=== PATIENT | female | born 1985 | race Two or more races ===

== ENCOUNTER 2017-11-19 01:30 | Emergency (ER) | payer MEDICAID ==
[~2017-11-19] VITALS: Ht 170.2 cm; Wt 108.9 kg
[~2017-11-19 01:30] MED LIST: PREN-96 PO
[2017-11-19 02:05] LABS: Urine Bacteria FEW /hpf (None Seen); Urine Blood Negative /uL (Negative); Urine Mucus FEW (None Seen); Urine Specific Gravity 1.016 (1.001-1.035); Urine WBC 3 /hpf (0 - 5)
[2017-11-19 02:09] LABS: Basophils # (auto) 0.1 uL; Basophils % (auto) 1.2 % (0.0-2.0); Eosinophils # (auto) 0.2 uL; Eosinophils % (auto) 3.3 % (0.0-7.0); Hematocrit 41.8 % (36.0-46.0); Hemoglobin 14.2 g/dL (12.2-16.2); Lymphocytes # (auto) 2.9 uL; Lymphocytes % (auto) 40.1 % (10.0-50.0); Mean Corpuscular Hemoglobin 28.4 pg (28.0-32.0); Mean Corpuscular Hgb Conc. 33.9 g/dL (32.0-36.0); Mean Corpuscular Volume 83.8 fL (80.0-100.0); Monocytes # (auto) 0.7 uL; Monocytes % (auto) 9.2 % (0.0-12.0); Neutrophils # (auto) 3.3 uL; Neutrophils % (auto) 46.2 % (37.0-80.0); Nucleated Red Blood Cells % 0.1 %; Platelet Count (auto) 257 10^3/uL (140-450); Red Blood Cells 4.98 10^6/uL (4.0-5.20); Red Cell Distribution Width 12.9 % (11.8-14.3); White Blood Cell 7.2 10^3/uL (4.4-10.8)
[2017-11-19 02:28] LABS: Albumin 3.2 g/dL (3.4-5.0); BUN/Creatinine Ratio 19.7; Calcium 8.5 mg/dL (8.5-10.1); Potassium 4.1 mmol/L (3.5-5.1)
[2017-11-19 02:31] LABS: Bilirubin, Total 0.2 mg/dL (0.2-1.0); Total Protein 7.3 g/dL (6.4-8.2)
[2017-11-19 10:14] VITALS: BP 111/63
== END 2017-11-19 10:29 | disposition home or self-care (01) ==
LOC: ER 01:30
DX: J45.909 Unspecified asthma, uncomplicated (principal); Z90.49 Acquired absence of other specified parts of digestive tract
CPT/HCPCS: 36415; 71046; 80053; 81001; 81025; 85025; 87804

== ENCOUNTER 2019-01-31 21:57 | Emergency (ER) | payer MEDICAID | END 2019-01-31 22:18 | disposition left against medical advice (07) | LOC: ER 21:59 | DX: R10.9 Unspecified abdominal pain (principal); Z53.21 Procedure and treatment not carried out due to patient leaving prior to being seen by health care provider ==

== ENCOUNTER 2019-05-10 11:04 | Emergency (ER) | payer MEDICAID ==
[~2019-05-10] VITALS: Ht 170.2 cm; Wt 128.4 kg
[2019-05-10] MEDS ORDERED: ACETAMINOPHEN/CODEINE#3 (300/30mg) TAB PO ONE (11:30)
[2019-05-10 11:51] LABS: Basophils # (auto) 0 uL; Basophils % (auto) 0.2 % (0.0-2.0); Eosinophils # (auto) 0.2 uL; Eosinophils % (auto) 1.6 % (0.0-7.0); Hematocrit 35.7 % (36.0-46.0); Hemoglobin 12.1 g/dL (12.2-16.2); Lymphocytes # (auto) 2.1 uL; Lymphocytes % (auto) 18.1 % (10.0-50.0); Mean Corpuscular Hemoglobin 27.4 pg (28.0-32.0); Mean Corpuscular Hgb Conc. 33.9 g/dL (32.0-36.0); Mean Corpuscular Volume 80.7 fL (80.0-100.0); Monocytes # (auto) 0.7 uL; Monocytes % (auto) 5.9 % (0.0-12.0); Neutrophils # (auto) 8.5 uL; Neutrophils % (auto) 74.2 % (37.0-80.0); Platelet Count (auto) 260 10^3/uL (140-450); Red Blood Cells 4.42 10^6/uL (4.0-5.20); Red Cell Distribution Width 13.5 % (11.8-14.3); White Blood Cell 11.5 10^3/uL (4.4-10.8)
[2019-05-10 12:05] LABS: Urine Bacteria MANY /hpf (None Seen); Urine Blood 1+ /uL (Negative); Urine Specific Gravity 1.003 (1.001-1.035); Urine WBC 15 /hpf (0 - 5)
[2019-05-10 12:15] LABS: Albumin 2.7 g/dL (3.4-5.0); Calcium 8.8 mg/dL (8.5-10.1); Potassium 3.6 mmol/L (3.5-5.1)
[2019-05-10 12:18] LABS: BUN/Creatinine Ratio 9.6; Bilirubin, Total 0.2 mg/dL (0.2-1.0); Total Protein 7.1 g/dL (6.4-8.2)
[2019-05-10 14:35] VITALS: BP 129/79
== END 2019-05-10 14:56 | disposition home or self-care (01) ==
LOC: ER 11:04
DX: O26.892 Other specified pregnancy related conditions, second trimester (principal); O99.342 Other mental disorders complicating pregnancy, second trimester; R51 Headache; F41.9 Anxiety disorder, unspecified; Z3A.18 18 weeks gestation of pregnancy
CPT/HCPCS: 36415; 76805; 80053; 81001; 84702; 85025; 93005

== ENCOUNTER 2019-08-05 21:54 | Observation (INO) | payer MEDICAID ==
[2019-08-05] MEDS ORDERED: ACETAMINOPHEN 325 MG TAB PO ONE (22:45)
[2019-08-05 23:14] LABS: Urine Bacteria FEW /hpf (None Seen); Urine Blood Negative /uL (Negative); Urine Specific Gravity 1.016 (1.001-1.035); Urine WBC 1 /hpf (0 - 5)
[2019-08-05 23:51] LABS: Basophils # (auto) 0 10 ^3/uL (0-0.2); Eosinophils # (auto) 0.1 10 ^3/uL (0-0.8); Hemoglobin 11.9 g/dL (12.2-16.2); Monocytes # (auto) 0.8 10 ^3/uL (0-1.3); Nucleated Red Blood Cells % 0.1 %
[2019-08-05 23:53] LABS: Basophils % (auto) 0.3 % (0.0-2.0); Hematocrit 35.9 % (36.0-46.0); Lymphocytes # (auto) 2.8 10 ^3/uL (0.4-5.4); Lymphocytes % (auto) 22.7 % (10.0-50.0); Mean Corpuscular Hemoglobin 26.4 pg (28.0-32.0); Monocytes % (auto) 6.7 % (0.0-12.0); Neutrophils # (auto) 8.5 10 ^3/uL (1.6-8.6); Neutrophils % (auto) 69.3 % (37.0-80.0); Platelet Count (auto) 237 10^3/uL (140-450); Red Blood Cells 4.49 10^6/uL (4.0-5.20); Red Cell Distribution Width 15.5 % (11.8-14.3); White Blood Cell 12.3 10^3/uL (4.4-10.8)
[2019-08-06 00:07] LABS: INR 0.97 (0.9-1.15); Partial Thromboplastin Time 27.7 sec (23.64-32.05)
[2019-08-06 00:13] LABS: Albumin 2.4 g/dL (3.4-5.0); Calcium 8.9 mg/dL (8.5-10.1); Potassium 3.5 mmol/L (3.5-5.1)
[2019-08-06 00:15] LABS: Bilirubin, Total 0.2 mg/dL (0.2-1.0); Total Protein 6.4 g/dL (6.4-8.2)
[2019-08-06 00:37] LABS: Alcohol, Urine < 3.0 mg/dL (0-5); Amphetamine Screen, Urine NEGATIVE (NEGATIVE); Benzodiazephine Screen, Urine NEGATIVE (NEGATIVE); Cannabinoid Screen, Urine NEGATIVE (NEGATIVE); Cocaine Screen, Urine NEGATIVE (NEGATIVE); Opiate Scree,Urine NEGATIVE (NEGATIVE); Phencyclidine Screen, Urine NEGATIVE (NEGATIVE)
[2019-08-06 00:48] LABS: Barbiturate Scree,Urine POSITIVE (NEGATIVE)
[2019-08-06 00:53] LABS: Uric Acid 7.1 mg/dL (2.6-6.0)
== END 2019-08-06 01:28 | disposition home or self-care (01) | DRG 566 ==
LOC: LDRP 21:54
PROVIDERS: ADMIT Specialist; ATTEND Specialist
DX: O13.3 Gestational [pregnancy-induced] hypertension without significant proteinuria, third trimester (principal); O14.93 Unspecified pre-eclampsia, third trimester; E05.90 Thyrotoxicosis, unspecified without thyrotoxic crisis or storm; G43.909 Migraine, unspecified, not intractable, without status migrainosus; R10.11 Right upper quadrant pain; H53.8 Other visual disturbances; Z3A.31 31 weeks gestation of pregnancy
CPT/HCPCS: 36415; 59025; 80053; 80307; 81001; 81002; 84550; 85025; 85362; 85379; 85610; 85730; G0378